=== PATIENT | male | born 1985 | race Caucasian/White ===

== ENCOUNTER 2017-01-04 10:48 | Emergency (ER) | payer SELFPAY ==
[~2017-01-04] VITALS: Ht 182.9 cm; Wt 113.6 kg
[2017-01-04 11:07] VITALS: BP 138/87
[2017-01-04] MEDS ORDERED: PENI500T PO (11:40)
--- NOTE | 2017-01-04 11:40 | PHYS DOC ---
Past History Past Medical History: No Pertinent History Past Surgical History: No Surgical History Additional Smoking Information: PACK A DAY Alcohol Use: None Drug Use: None Adult General Chief Complaint Chief Complaint: FACE PROBLEM HPI HPI Patient is a 31-year-old male who presents ambulatory to the ED complaining of left face pain and swelling which was present today when he woke up. Patient says he has an appointment with the dentist this coming Friday. He's had a broken tooth on that side of his mouth for a long time. The patient denies fever or chills. Review of Systems Review of Systems Constitutional: Denies fever or chills [] HENT: Denies difficulty swallowing Allergies Allergies Allergies Coded Allergies Type Severity Reaction Last Updated Verified No Known Drug Allergies 01/04/17 No Physical Exam Physical Exam Constitutional: Well developed, well nourished, no acute distress, non-toxic appearance. Alert, mentating normally, handling his secretions normally, voice is normal. HENT: Normocephalic, atraumatic, bilateral external ears normal, oropharynx moist, no oral exudates, nose normal. Moderate swelling of the left cheek over the anterolateral maxilla. No redness. Intraorally, there is a fracture at the gumline of the third molar and the first molar. There is no obvious periapical abscess of either one. There is no cellulitis noted intraorally. Eyes: conjunctiva normal, no discharge. [] Neck: Normal range of motion, no tenderness, supple, no stridor. [] Skin: Warm, dry, no erythema, no rash. [] Extremities: No tenderness, no cyanosis, no clubbing, ROM intact, no edema. [] Neurologic: Alert and oriented X 3, normal motor function, no focal deficits noted. [] Current Patient Data Vital Signs Vital Signs Date Time Temp Pulse Resp B/P (MAP) Pulse Ox O2 Delivery O2 Flow Rate FiO2 01/04/17 11:07 97.9 78 20 99 Room Air EKG EKG [] Radiology/Procedures Radiology/Procedures [] Course & Med Decision Making Course & Med Decision Making Pertinent Labs and Imaging studies reviewed. (See chart for details) 31-year-old male with teeth fractured off at the gumline presents with facial cellulitis secondary to dental infection. I urged the patient to see his dentist as soon as possible, advised him antibiotics will be only a temporizing measure in this case. He does have a dentist appointment per his history. See instructions for plan. [] Dragon Disclaimer Dragon Disclaimer This chart was dictated in whole or in part using Voice Recognition software in a busy, high-work load, and often noisy Emergency Department environment. It may contain unintended and wholly unrecognized errors or omissions. Departure Departure: Impression: Primary Impression: Dental infection Disposition: HOME, SELF-CARE Condition: STABLE Patient Instructions: Dental Caries-Brief Additional Instructions: As we discussed, it is very important to see your dentist for treatment. Antibiotics will only helped temporarily. Ibuprofen 200 mg, 2 every 6 hours as needed for pain. Scripts Penicillin V Potassium (PENICILLIN V POTASSIUM) 500 Mg Tablet 1 TAB PO TID, #30 TAB Prov: WALDEMAR STANFORD MD 01/04/17 WALDEMAR STANFORD MD Jan 04, 2017 11:40
== END 2017-01-04 11:46 | disposition home or self-care (01) ==
LOC: ER 10:48
DX: K04.7 Periapical abscess without sinus (principal); F17.200 Nicotine dependence, unspecified, uncomplicated
CPT/HCPCS: 99283